=== PATIENT | male | born 1965 | race Hispanic/Latino ===

== ENCOUNTER 2021-09-24 16:48 | Inpatient (IN) | payer BC ==
[~2021-09-24] VITALS: Ht 157.5 cm; Wt 55.7 kg
[2021-09-24] MEDS ORDERED: ONDANSETRON 4MG INJ IVP PRN (17:30)
[2021-09-24] MEDS ORDERED: ZOLPIDEM TARTRATE 5 MG TAB PO PRN (17:30)
[2021-09-24] MEDS ORDERED: LACTULOSE 20 GM/30 ML UDCUP PO PRN (17:30)
[2021-09-24] MEDS ORDERED: IPRA3AMP24 IH (17:30)
[2021-09-24] MEDS ORDERED: ACETAMINOPHEN 325 MG TAB PO PRN (17:30)
[2021-09-24] MEDS ORDERED: 0.9%NACL 10ML VIAL IVP PRN (17:30)
[2021-09-24] MEDS ORDERED: DIPHENHYDRAMINE HCL 25 MG CAPSULE PO PRN (17:30)
[2021-09-24] MEDS ORDERED: 0.9%NACL 10ML VIAL IVP SCH (17:30)
[2021-09-24] MEDS ORDERED: GUAIFENESIN SUGAR-FREE 100 MG/5 ML UDCUP PO PRN (17:30)
[2021-09-24 17:33] LABS: MEAN CORPUSCULAR HEMOGLOBIN 28.8 pg (27.0-33.0); MEAN CORPUSCULAR HGB CONC 31.6 g/dL (32.0-36.0); MEAN CORPUSCULAR VOLUME 91.3 fL (79-99); PLATELET COUNT (AUTO) 374 K/uL (130-400); RED BLOOD CELL COUNT(AUTO) 2.29 MIL/uL (4.50-6.20); RED CELL DISTRIBUTION WIDTH 15.2 % (11.0-15.5); WHITE BLOOD COUNT (AUTO) 8.6 K/uL (4.8-10.8)
[2021-09-24 17:44] LABS: HEMATOCRIT 20.9 % (42-54)
[2021-09-24 17:49] LABS: BAND NEUTROPHILS % (MANUAL) 2 % (0-2); BASOPHILS % (MANUAL) 2 % (0-2); EOSINOPHILS % (MANUAL) 5 % (1-6); LYMPHOCYTES % (MANUAL) 6 % (22-44); MAN.DIFF COMMENT-IMPRESSION MANUAL DIFFERENTIAL; MONOCYTES % (MANUAL) 4 % (2-9); SEGMENTED NEUTROPHILS % 81 % (40-70)
[2021-09-24 17:50] LABS: ALBUMIN 2.8 g/dL (3.5-5.0); BILIRUBIN,TOTAL 0.2 mg/dL (0.2-1.0); POTASSIUM 5.8 mmol/L (3.5-5.1); TOTAL PROTEIN, SERUM 7.4 g/dL (6.0-8.3)
[2021-09-24 17:54] LABS: APPEARANCE,URINE Clear (CLEAR); BILIRUBIN,URINE Negative (NEGATIVE); COLOR,URINE Yellow (YELLOW); GLUCOSE, URINE (UA) TRACE mg/dL (NEGATIVE); KETONES,URINE Negative (NEGATIVE); LEUKOCYTE ESTERASE ,URINE Negative (NEGATIVE); NITRATE,URINE Negative (NEGATIVE); OCCULT BLOOD,URINE Trace (NEGATIVE); PROTEIN,URINE 300 mg/dL (NEGATIVE); UROBILINOGEN,URINE 0.2 mg/dL (0.2-1.0)
[2021-09-24 17:57] LABS: CREATININE 12.4 mg/dL (0.5-1.5)
[2021-09-24 18:02] LABS: BACTERIA,URINE Rare /HPF (None Seen); RBC,URINE 0-1 /HPF (0-1); SQUAMOUS EPITHELIAL CELL,UR Rare /HPF (0-2)
[2021-09-24 18:03] LABS: MUCUS,URINE Rare LPF (None Seen)
[2021-09-24 18:09] LABS: MAGNESIUM 2.4 mg/dL (1.80-2.40); PHOSPHORUS 10.2 mg/dL (2.5-4.9); URIC ACID 8.7 mg/dL (2.6-7.2)
[2021-09-24 18:29] LABS: % IRON SATURATION 18.9 % (30-44)
[2021-09-24] MEDS ORDERED: NA ZIRCON CYCLOSIL(LOKELMA 10GM) PO ONE (21:30)
[2021-09-24 22:20] VITALS: BP 159/90
[2021-09-24] MEDS: CEFTRIAXONE 1G VIAL IVP SCH (22:31)
[2021-09-24] MEDS: IPRATROPIUM/ALBUTEROL SULFATE 3 ML SOLUTION IH SCH (23:15)
[2021-09-25] VITALS (16 sets, daily range): BP systolic 134–177; BP diastolic 79–99
[2021-09-25 04:53] LABS: BASOPHILS % (AUTO) 0.3 % (0.0-5.0); EOSINOPHILS % (AUTO) 10.9 % (0.0-8.0); LYMPHOCYTES % (AUTO) 10.6 % (21.0-51.0); MEAN CORPUSCULAR HEMOGLOBIN 28.3 pg (27.0-33.0); MEAN CORPUSCULAR HGB CONC 30.9 g/dL (32.0-36.0); MEAN CORPUSCULAR VOLUME 91.7 fL (79-99); MONOCYTES % (AUTO) 6.5 % (3.0-13.0); NEUTROPHILS % (AUTO) 70.2 % (40.0-77.0); PLATELET COUNT (AUTO) 312 K/uL (130-400); RED BLOOD CELL COUNT(AUTO) 2.05 MIL/uL (4.50-6.20); WHITE BLOOD COUNT (AUTO) 7.4 K/uL (4.8-10.8)
[2021-09-25 05:03] LABS: HEMATOCRIT 18.8 % (42-54)
[2021-09-25 05:19] LABS: ALBUMIN 2.5 g/dL (3.5-5.0); BILIRUBIN,TOTAL 0.2 mg/dL (0.2-1.0); MAGNESIUM 2.5 mg/dL (1.80-2.40); PHOSPHORUS 10.6 mg/dL (2.5-4.9); POTASSIUM 5.8 mmol/L (3.5-5.1); TOTAL PROTEIN, SERUM 6.6 g/dL (6.0-8.3); URIC ACID 9.2 mg/dL (2.6-7.2)
[2021-09-25 05:22] LABS: CREATININE 12.8 mg/dL (0.5-1.5)
[2021-09-25] MEDS: IPRATROPIUM/ALBUTEROL SULFATE 3 ML SOLUTION IH SCH ×3 (06:26→21:05)
[2021-09-25 07:31] LABS: CHOLESTEROL 190 mg/dL (<200); HDL CHOLESTEROL 41 mg/dL (29-71); LDL DIRECT 124 mg/dL (0-99); TRIGLYCERIDES 120 mg/dL (30-200)
[2021-09-25] MEDS: QUETIAPINE FUMARATE 100 MG TAB PO SCH (07:50)
[2021-09-25] MEDS: AMLODIPINE 5 MG TAB PO SCH (07:50)
[2021-09-25] MEDS: PANTOPRAZOLE 40 MG TAB DR PO SCH (07:50)
[2021-09-25] MEDS: SODIUM BICARBONATE 650 MG TAB PO SCH ×3 (07:50→20:34)
[2021-09-25] MEDS: IRON SUCROSE COMPLEX 300 MG in 0.9%NACL 50ML 50 ML IV SCH (08:32)
[2021-09-25 09:09] LABS: INR 1.21 (0.85-1.15)
[2021-09-25 09:10] LABS: PARTIAL THROMBOPLASTIN TIME 36.7 SEC (26.3-35.5)
[2021-09-25] MEDS ORDERED: LIDOCAINE HCL 400MG/20ML VIAL ONE (09:12)
[2021-09-25] MEDS ORDERED: HEPARIN 1,000 UNIT VIAL ONE (09:44)
[2021-09-25 09:51] LABS: % IRON SATURATION 55.1 % (30-44)
[2021-09-25] MEDS ORDERED: HEPARIN 5,000 UNIT VIAL IV ONE (14:30)
[2021-09-25] MEDS: CEFTRIAXONE 1G VIAL IVP SCH (20:34)
[2021-09-25 21:34] LABS: HEPATITIS B SURFACE ANTIGEN Non-Reactive (Negative)
[2021-09-26] VITALS (18 sets, daily range): BP systolic 132–163; BP diastolic 80–99
[2021-09-26 04:53] LABS: BASOPHILS % (AUTO) 0.3 % (0.0-5.0); EOSINOPHILS % (AUTO) 9.8 % (0.0-8.0); HEMATOCRIT 27.2 % (42-54); LYMPHOCYTES % (AUTO) 11.2 % (21.0-51.0); MEAN CORPUSCULAR HEMOGLOBIN 28.1 pg (27.0-33.0); MEAN CORPUSCULAR VOLUME 87.7 fL (79-99); MONOCYTES % (AUTO) 8.4 % (3.0-13.0); NEUTROPHILS % (AUTO) 68.8 % (40.0-77.0); PLATELET COUNT (AUTO) 288 K/uL (130-400); RED CELL DISTRIBUTION WIDTH 15.1 % (11.0-15.5); WHITE BLOOD COUNT (AUTO) 7.6 K/uL (4.8-10.8)
[2021-09-26 05:04] LABS: POTASSIUM 4.6 mmol/L (3.5-5.1)
[2021-09-26 05:12] LABS: CREATININE 9.1 mg/dL (0.5-1.5)
[2021-09-26] MEDS: IPRATROPIUM/ALBUTEROL SULFATE 3 ML SOLUTION IH SCH ×3 (06:23→23:23)
[2021-09-26] MEDS: SODIUM BICARBONATE 650 MG TAB PO SCH ×3 (09:00→22:20)
[2021-09-26] MEDS ORDERED: HEPARIN 5,000 UNIT VIAL ONE (11:58)
[2021-09-26] MEDS: QUETIAPINE FUMARATE 100 MG TAB PO SCH (13:21)
[2021-09-26] MEDS: PANTOPRAZOLE 40 MG TAB DR PO SCH (13:22)
[2021-09-26] MEDS: AMLODIPINE 5 MG TAB PO SCH (13:22)
[2021-09-26] MEDS: IRON SUCROSE COMPLEX 300 MG in 0.9%NACL 50ML 50 ML IV SCH (14:40)
[2021-09-26] MEDS: CEFTRIAXONE 1G VIAL IVP SCH (22:20)
[2021-09-27] VITALS (21 sets, daily range): BP systolic 107–159; BP diastolic 65–98
[2021-09-27 05:06] LABS: HEMATOCRIT 27.5 % (42-54); MEAN CORPUSCULAR HEMOGLOBIN 27.5 pg (27.0-33.0); MEAN CORPUSCULAR VOLUME 85.9 fL (79-99); RED BLOOD CELL COUNT(AUTO) 3.2 MIL/uL (4.50-6.20); RED CELL DISTRIBUTION WIDTH 14.8 % (11.0-15.5); WHITE BLOOD COUNT (AUTO) 6.7 K/uL (4.8-10.8)
[2021-09-27 05:19] LABS: ALBUMIN 2.6 g/dL (3.5-5.0); BILIRUBIN,TOTAL 0.2 mg/dL (0.2-1.0); CREATININE 6.9 mg/dL (0.5-1.5); POTASSIUM 5.2 mmol/L (3.5-5.1); TOTAL PROTEIN, SERUM 6.8 g/dL (6.0-8.3)
[2021-09-27] MEDS: IPRATROPIUM/ALBUTEROL SULFATE 3 ML SOLUTION IH SCH ×3 (06:54→21:32)
[2021-09-27] MEDS: QUETIAPINE FUMARATE 100 MG TAB PO SCH (09:00)
[2021-09-27] MEDS: IRON SUCROSE COMPLEX 300 MG in 0.9%NACL 50ML 50 ML IV SCH (09:27)
[2021-09-27] MEDS: SODIUM BICARBONATE 650 MG TAB PO SCH ×3 (09:28→22:15)
[2021-09-27] MEDS: PANTOPRAZOLE 40 MG TAB DR PO SCH (09:28)
[2021-09-27] MEDS: AMLODIPINE 5 MG TAB PO SCH (09:28)
[2021-09-27] MEDS: HEPARIN 5,000 UNIT VIAL IRRIG PRN (14:28)
[2021-09-27] MEDS: CEFTRIAXONE 1G VIAL IVP SCH (22:15)
[2021-09-28] VITALS (7 sets, daily range): BP systolic 118–167; BP diastolic 66–88
[2021-09-28 04:41] LABS: HEMATOCRIT 27.2 % (42-54); MEAN CORPUSCULAR HEMOGLOBIN 28.1 pg (27.0-33.0); MEAN CORPUSCULAR VOLUME 87.7 fL (79-99); RED BLOOD CELL COUNT(AUTO) 3.1 MIL/uL (4.50-6.20); RED CELL DISTRIBUTION WIDTH 14.9 % (11.0-15.5); WHITE BLOOD COUNT (AUTO) 7.8 K/uL (4.8-10.8)
[2021-09-28 05:11] LABS: ALBUMIN 2.6 g/dL (3.5-5.0); BILIRUBIN,TOTAL 0.1 mg/dL (0.2-1.0); CREATININE 5.5 mg/dL (0.5-1.5); POTASSIUM 4.5 mmol/L (3.5-5.1); TOTAL PROTEIN, SERUM 6.5 g/dL (6.0-8.3)
[2021-09-28] MEDS: IPRATROPIUM/ALBUTEROL SULFATE 3 ML SOLUTION IH SCH ×3 (06:32→21:42)
[2021-09-28] MEDS: QUETIAPINE FUMARATE 100 MG TAB PO SCH (09:00)
[2021-09-28] MEDS: PANTOPRAZOLE 40 MG TAB DR PO SCH (10:45)
[2021-09-28] MEDS: AMLODIPINE 5 MG TAB PO SCH (10:45)
[2021-09-28] MEDS: SODIUM BICARBONATE 650 MG TAB PO SCH ×3 (10:45→20:35)
[2021-09-28] MEDS: CEFTRIAXONE 1G VIAL IVP SCH (20:35)
[2021-09-29] VITALS (21 sets, daily range): BP systolic 128–158; BP diastolic 69–96
[2021-09-29] MEDS: IPRATROPIUM/ALBUTEROL SULFATE 3 ML SOLUTION IH SCH ×3 (06:33→22:29)
[2021-09-29] MEDS: PANTOPRAZOLE 40 MG TAB DR PO SCH (08:42)
[2021-09-29] MEDS: SODIUM BICARBONATE 650 MG TAB PO SCH ×3 (08:42→21:07)
[2021-09-29] MEDS: AMLODIPINE 5 MG TAB PO SCH (08:42)
[2021-09-29] MEDS: QUETIAPINE FUMARATE 100 MG TAB PO SCH (08:43)
[2021-09-29] MEDS: HEPARIN 5,000 UNIT VIAL IRRIG PRN (20:53)
[2021-09-29] MEDS: CEFTRIAXONE 1G VIAL IVP SCH (21:07)
[2021-09-30 04:23] VITALS: BP 159/90
[2021-09-30 05:33] LABS: HEMATOCRIT 26.4 % (42-54); MEAN CORPUSCULAR HEMOGLOBIN 29.5 pg (27.0-33.0); MEAN CORPUSCULAR VOLUME 89.5 fL (79-99); RED BLOOD CELL COUNT(AUTO) 2.95 MIL/uL (4.50-6.20); RED CELL DISTRIBUTION WIDTH 14.8 % (11.0-15.5); WHITE BLOOD COUNT (AUTO) 8.4 K/uL (4.8-10.8)
[2021-09-30 05:42] LABS: INR 1.02 (0.85-1.15); PROTHROMBIN TIME 11.1 SEC (9.6-11.6)
[2021-09-30 05:43] LABS: PARTIAL THROMBOPLASTIN TIME 32.3 SEC (26.3-35.5)
[2021-09-30 05:56] LABS: CREATININE 5.6 mg/dL (0.5-1.5); POTASSIUM 4.4 mmol/L (3.5-5.1)
[2021-09-30] MEDS: IPRATROPIUM/ALBUTEROL SULFATE 3 ML SOLUTION IH SCH ×3 (07:03→21:17)
[2021-09-30 08:00] VITALS: BP 159/90
[2021-09-30] MEDS: QUETIAPINE FUMARATE 100 MG TAB PO SCH (09:00)
[2021-09-30] MEDS: PANTOPRAZOLE 40 MG TAB DR PO SCH (09:00)
[2021-09-30] MEDS: SODIUM BICARBONATE 650 MG TAB PO SCH (09:00)
[2021-09-30] MEDS: AMLODIPINE 5 MG TAB PO SCH (09:00)
[2021-09-30 11:07] VITALS: BP 145/84
[2021-09-30] MEDS ORDERED: CLINDAMYCIN IVPB 600MG/50ML 50 ML IV SCH (13:00)
[2021-09-30 16:00] VITALS: BP 147/86
[2021-09-30 19:48] VITALS: BP 155/84
[2021-09-30] MEDS: CEFTRIAXONE 1G VIAL IVP SCH (20:30)
[2021-09-30 23:35] VITALS: BP 133/77
[2021-10-01] VITALS (15 sets, daily range): BP systolic 136–164; BP diastolic 78–89
[2021-10-01 05:34] LABS: CREATININE 7.7 mg/dL (0.5-1.5); POTASSIUM 5.2 mmol/L (3.5-5.1)
[2021-10-01] MEDS: IPRATROPIUM/ALBUTEROL SULFATE 3 ML SOLUTION IH SCH ×3 (06:16→22:09)
[2021-10-01] MEDS: QUETIAPINE FUMARATE 100 MG TAB PO SCH (09:00)
[2021-10-01] MEDS: PANTOPRAZOLE 40 MG TAB DR PO SCH (09:00)
[2021-10-01] MEDS: AMLODIPINE 5 MG TAB PO SCH ×2 (09:00→20:32)
[2021-10-01] MEDS ORDERED: LIDOCAINE PF 100MG/5ML (2%) SYRINGE 5ML ONE (12:23)
[2021-10-01] MEDS ORDERED: SUCCINYLCHOLINE CHLORIDE 20 MG/ML 10 ML VIAL ONE (12:23)
[2021-10-01] MEDS ORDERED: GLYCOPYRROLATE 1 MG/5 ML SYRINGE ONE (12:24)
[2021-10-01] MEDS ORDERED: DEXAMETHASONE SOD PHOSPHATE 10MG/ML 1ML VIAL ONE (12:24)
[2021-10-01] MEDS ORDERED: MIDAZOLAM HCL 1 MG/ML 2ML VIAL ONE ×2 (12:24→16:35)
[2021-10-01] MEDS ORDERED: PROPOFOL 10 MG/ML 20ML VIAL IV ONE (12:24)
[2021-10-01] MEDS ORDERED: NEOSTIGMINE 5MG/5ML SYR IV ONE (12:25)
[2021-10-01] MEDS ORDERED: ONDANSETRON 4MG INJ ONE (12:25)
[2021-10-01] MEDS ORDERED: ROCURONIUM 10MG/1ML SYR 10 MG/ML ML ONE (12:25)
[2021-10-01] MEDS ORDERED: FENTANYL CITRATE PF 50 MCG/1 ML 2ML VIAL ONE ×2 (12:26→16:16)
[2021-10-01] MEDS ORDERED: ROPIVACAINE 0.5% 5MG/ML 30ML IJ ONE (12:33)
[2021-10-01] MEDS ORDERED: KETAMINE 50MG/ML SYRINGE 50 MG/ML DISP.SYRIN IV ONE (14:45)
[2021-10-01] MEDS ORDERED: LIDOCAINE HCL 1% 20 ML VIAL ONE (15:29)
[2021-10-01] MEDS ORDERED: BUPIVACAINE/PF 0.5% 30ML VIAL ONE (15:30)
[2021-10-01] MEDS ORDERED: CLINDAMYCIN 900MG/6ML INJ ONE (16:46)
[2021-10-01] MEDS ORDERED: PROTAMINE SULFATE 10 MG/ML 25ML VIAL IV ONE (16:49)
[2021-10-01] MEDS ORDERED: HEPARIN 10,000 UNIT/10ML (1,000 UNIT/ML) VIAL ONE (16:49)
[2021-10-01] MEDS: CEFTRIAXONE 1G VIAL IVP SCH (20:31)
[2021-10-02] VITALS (18 sets, daily range): BP systolic 117–170; BP diastolic 53–97
[2021-10-02 04:50] LABS: HEMATOCRIT 28.2 % (42-54); MEAN CORPUSCULAR HEMOGLOBIN 28.3 pg (27.0-33.0); MEAN CORPUSCULAR HGB CONC 31.9 g/dL (32.0-36.0); MEAN CORPUSCULAR VOLUME 88.7 fL (79-99); PLATELET COUNT (AUTO) 230 K/uL (130-400); RED BLOOD CELL COUNT(AUTO) 3.18 MIL/uL (4.50-6.20); RED CELL DISTRIBUTION WIDTH 14.3 % (11.0-15.5); WHITE BLOOD COUNT (AUTO) 3.6 K/uL (4.8-10.8)
[2021-10-02 05:16] LABS: CREATININE 9.3 mg/dL (0.5-1.5); POTASSIUM 6.2 mmol/L (3.5-5.1)
[2021-10-02 06:01] LABS: BASOPHILS % (MANUAL) 1 % (0-2); LYMPHOCYTES % (MANUAL) 10 % (22-44); MAN.DIFF COMMENT-IMPRESSION MANUAL DIFFERENTIAL; SEGMENTED NEUTROPHILS % 89 % (40-70)
[2021-10-02 06:02] LABS: PLATELET MORPHOLOGY COMMENT ADEQUATE
[2021-10-02] MEDS: IPRATROPIUM/ALBUTEROL SULFATE 3 ML SOLUTION IH SCH ×2 (06:32→14:10)
[2021-10-02] MEDS: AMLODIPINE 5 MG TAB PO SCH ×2 (07:30→08:39)
[2021-10-02] MEDS: PANTOPRAZOLE 40 MG TAB DR PO SCH (08:39)
[2021-10-02] MEDS: QUETIAPINE FUMARATE 100 MG TAB PO SCH (08:39)
[2021-10-02] MEDS: HEPARIN 5,000 UNIT VIAL IRRIG PRN (11:31)
[2021-10-02] MEDS ORDERED: AMLO5TAB4 PO ×2 (13:35→14:36)
== END 2021-10-02 15:20 | disposition home or self-care (01) | DRG 673 ==
LOC: EDH 16:48 → EDHIP 16:49 → 3BH 21:23 → 2AH 10-01 14:12 → 3BH 10-01 15:29 → 2AH 10-01 18:06
PROVIDERS: ADMIT Internal Medicine; ATTEND Internal Medicine
PROC: 5A1D70Z Performance of Urinary Filtration, Intermittent, Less than 6 Hours Per Day (ICD-10-PCS; 2021-09-24)
PROC: 30233N1 Transfusion of Nonautologous Red Blood Cells into Peripheral Vein, Percutaneous Approach (ICD-10-PCS; 2021-09-25)
PROC: 5A1D70Z Performance of Urinary Filtration, Intermittent, Less than 6 Hours Per Day (ICD-10-PCS; 2021-09-25)
PROC: 0JH63XZ Insertion of Tunneled Vascular Access Device into Chest Subcutaneous Tissue and Fascia, Percutaneous Approach (ICD-10-PCS; 2021-09-25)
PROC: 02H633Z Insertion of Infusion Device into Right Atrium, Percutaneous Approach (ICD-10-PCS; 2021-09-25)
PROC: B5181ZA Fluoroscopy of Superior Vena Cava using Low Osmolar Contrast, Guidance (ICD-10-PCS; 2021-09-25)
PROC: B548ZZA Ultrasonography of Superior Vena Cava, Guidance (ICD-10-PCS; 2021-09-25)
PROC: 5A1D70Z Performance of Urinary Filtration, Intermittent, Less than 6 Hours Per Day (ICD-10-PCS; 2021-09-26)
PROC: 5A1D70Z Performance of Urinary Filtration, Intermittent, Less than 6 Hours Per Day (ICD-10-PCS; 2021-09-27)
PROC: 5A1D70Z Performance of Urinary Filtration, Intermittent, Less than 6 Hours Per Day (ICD-10-PCS; 2021-09-29)
PROC: 031C0ZF Bypass Left Radial Artery to Lower Arm Vein, Open Approach (ICD-10-PCS; principal; 2021-10-01 16:00)
PROC: 5A1D70Z Performance of Urinary Filtration, Intermittent, Less than 6 Hours Per Day (ICD-10-PCS; 2021-10-02)
DX: N17.9 Acute kidney failure, unspecified (principal); U07.1 COVID-19; J18.9 Pneumonia, unspecified organism; I12.0 Hypertensive chronic kidney disease with stage 5 chronic kidney disease or end stage renal disease; E87.2 Acidosis; N18.6 End stage renal disease; E87.5 Hyperkalemia; E78.5 Hyperlipidemia, unspecified; D64.9 Anemia, unspecified; M10.9 Gout, unspecified; N20.0 Calculus of kidney; Z87.442 Personal history of urinary calculi; Z90.5 Acquired absence of kidney; Z88.0 Allergy status to penicillin; Z88.8 Allergy status to other drugs, medicaments and biological substances; Z82.49 Family history of ischemic heart disease and other diseases of the circulatory system
CPT/HCPCS: 36415; 36430; 36558; 71045; 76770; 77001; 80048; 80053; 80061; 81001; 82270; 82728; 83540; 83550; 83735; 84100; 84550; 85025; 85027; 85610; 85730; 86701; 86704; 86706; 86850; 86900; 86901; 86923; 87340; 87390; 87635; 90935; 93005; 93970; 94640; 94664; C1750; G0378; J0330; J0696; J1100; J1644; J1756; J2001; J2250; J2405; J2704; J2710; J2720; J2795; J3010; J3490; J7030; P9016